=== PATIENT | male | born 1960 | race Two or more races ===

== ENCOUNTER 2019-08-03 18:09 | Emergency (ER) | payer OTHER ==
--- NOTE | 2019-08-03 19:01 | Emergency Department Record ---
History of Present Illness - General Chief Complaint: Recheck - Other Stated Complaint: NEED A BLOOD DRAW, LOW PATASIUM Time Seen by Provider: 08/03/19 18:48 Source: Patient Mode of arrival: Ambulatory Limitations: No limitations - History of Present Illness Initial Comments: 58 yo male presents after an abnormal lab draw earlier today. The patient had a routine lab draw in [place] today. He was called and told his potassium is 2.6. He was directed to the ED. He denies any changes in his health. His only symptoms have been some occasional leg cramps. No chest pain, palpitations, syncope, vomiting, diarrhea, dysuria, fever, chills, cough. He is treated for HTN. PCP is at [facility]. MD Complaint: Abnormal lab -: Hour(s) Initial Visit For: Other Returns Today for: Called because of abnormal lab/test Symptoms Since Prior Visit: No new symptoms Associated Symptoms: None Treatments Prior to Arrival: Other - Related Data Home Medications Medication Instructions Recorded Confirmed Last Taken Albuterol Sulfate [Ventolin Hfa] 1 - 2 puff IH .EVERY 4-6 HOURS PRN 08/03/19 08/03/19 1 Day Ago ~08/02/19 Amlodipine Besylate 5 mg PO DAILY 08/03/19 08/03/19 1 Day Ago ~08/02/19 Budesonide/Formoterol Fumarate 1 puff IH DAILY 08/03/19 08/03/19 1 Day Ago [Symbicort 80-4.5 Mcg Inhaler] ~08/02/19 Previous Rx's Medication Instructions Recorded Potassium Chloride [Klor-Con 10] 20 meq PO DAILY #3 tablet.er 08/04/19 Allergies Allergy/AdvReac Type Severity Reaction Status Date / Time propofol Allergy HYPERSENSIT Verified 08/03/19 19:05 IVITY Review of Systems Constitutional: Denies: Chills, Fever, Malaise, Weakness Eyes: Denies: Eye discharge ENT: Denies: Congestion Respiratory: Denies: Cough, Dyspnea Cardiovascular: Denies: Chest pain, Dyspnea on exertion, Edema, Palpitations, Syncope Endocrine: Denies: Fatigue Gastrointestinal: Denies: Abdominal pain, Diarrhea, Nausea, Vomiting Genitourinary: Denies: Dysuria, Frequency, Hematuria Musculoskeletal: Reports: Other (occasiona leg cramps). Denies: Arthralgia, Back pain, Joint swelling, Myalgia, Neck pain Skin: Denies: Bruising, Change in color, Rash Neurological: Denies: Headache, Numbness, Paresthesias Psychiatric: Denies: Anxiety Hematological/Lymphatic: Denies: Easy bleeding, Easy bruising Physical Exam - General General Appearance: Alert, Oriented x3, Cooperative, No acute distress Limitations: No limitations - Head Head exam: Atraumatic, Normal inspection - Eye Eye exam: Normal appearance, Conjunctival injection - ENT ENT exam: Normal exam, Mucous membranes moist Ear exam: Normal external inspection Nasal Exam: Normal inspection Mouth exam: Normal external inspection - Neck Neck exam: Normal inspection - Respiratory Respiratory exam: Normal lung sounds bilaterally. negative: Respiratory distress - Cardiovascular Cardiovascular Exam: Regular rate, Normal rhythm, Normal heart sounds - GI/Abdominal GI/Abdominal exam: Soft. negative: Tenderness - Extremities Extremities exam: negative: Calf tenderness, Pedal edema, Tenderness - Back Back exam: Denies: CVA tenderness (R), CVA tenderness (L) - Neurological Neurological exam: Alert, Normal gait, Oriented X3. negative: Altered - Psychiatric Psychiatric exam: Normal affect, Normal mood - Skin Skin exam: Dry, Intact, Normal color, Warm Course - Reevaluation(s) Reevaluation #1: 08/03/19 19:42 K is 2.5 Will replace and recheck 08/04/19 00:26 The Repeat is 3.2 The patient is stable for [facility] He will take a supplement the next 3 days and call his doctor for a recheck first of the week Medical Decision Making - Lab Data Result diagrams: 08/03/19 23:50 Disposition Disposition: Discharge Clinical Impression: Hypokalemia Disposition: Home, Self-Care Condition: (1) Good Instructions: Hypokalemia (ED) Additional Instructions: Eat potassium rich foods Recheck your potassium first of the week through your doctor Return to the ED if you have any symptoms, changes in your health or concerns Prescriptions: Potassium Chloride [Klor-Con 10] 20 meq PO DAILY #3 tablet.er Forms: Patient Portal Access Time of Disposition: 00:27 Quality - Quality Measures Quality Measures: N/A - Blood Pressure Screening Does Patient Have Any of the Following: Active Dx of HTN Blood Pressure Classification: Hypertensive Reading Systolic Measurement: 133 Diastolic Measurement: 102 Screening for High Blood Pressure: Patient Exclusion, Hx of HTN [G9744]
[2019-08-03 19:19] LABS: BLOOD UREA NITROGEN 10 mg/dL (8-23); CREATININE 0.9 mg/dL (0.7-1.2); EST GLOMERULAR FILTRATION RATE > 60 mL/min
[2019-08-03 19:20] LABS: TOTAL PROTEIN 7.3 g/dL (6.6-8.7)
[2019-08-03 19:22] LABS: GLUCOSE,RANDOM 169 mg/dL (74-109)
[2019-08-03 19:24] LABS: ALT/SGPT 21 U/L (<41); AST/SGOT 18 U/L (10.0-50.0)
[2019-08-03 19:25] LABS: ALB/GLOB RATIO 1.5 (1.1-1.8); ALBUMIN 4.4 g/dL (4.0-5.0); ALKALINE PHOSPHATASE 115 U/L (40-129)
[2019-08-03] MEDS ORDERED: SOD CHLOR 0.9% WITH KCL 40MEQ 40 MEQ/1,000 ML IV.SOLN IV ONE (19:41)
[2019-08-03] MEDS ORDERED: POTASSIUM CHLORIDE 20 MEQ TABLET PO ONE (19:42)
[2019-08-04] MEDS ORDERED: POTASSIUM CHLORIDE 20 MEQ TABLET PO ONE (00:26)
== END 2019-08-04 00:44 | disposition home or self-care (01) ==
LOC: ER 18:09
DX: E87.6 Hypokalemia (principal); I10 Essential (primary) hypertension
CPT/HCPCS: 80053; 83735; 84132; 96365; 96366; 99284